=== PATIENT | female | born 1995 | race Caucasian/White ===

== ENCOUNTER 2024-06-04 09:34 | Outpatient (AMB) | payer OTHER, SELFPAY ==
--- NOTE | 2024-06-04 09:42 | MHC.OFFWIV ---
Intake Vital Signs 06/04/24 09:44 06/04/24 09:44 Height 5 ft 6 in Weight 187 lb 187 lb BMI 30.2 BP 112/62 Blood Pressure Location Lt brachial Position Sitting Respiration 12 Pulse 111 H Pulse Source Pulse Oximeter Temp 98.1 F Temp Source Temporal Artery Scan Pulse Oximetry (%) 96 Oxygen Delivery Method Room Air Intake Visit Reasons: Trouble swallowing Intake Note: Patient reports she has what feels like swollen tonsils. Patient reports she does not have a history of strep since she was a child. Patient reports she finds difficulty swallowing and talking. Patient Tobacco Use Status: Never used Tobacco Fine Jewelry Sales Associate Required: No Accompanied by: Self / Same As Patient Allergies No Known Allergies Allergy (Verified 06/04/24 09:56) Do you need a note to return to daycare/school/sports/work: No HPI HPI Comments History of Present Illness Details 29-year-old female here today with chief complaints of difficulty swallowing. Upon interview she appears quite ill and uncomfortable. She has speaking in a whisper tone, spitting as she can not swallow her own secretions. What she tells me is that she started with difficulty and painful swallowing a few days ago. Worse since onset. Has the chills and feels cold overall. She can no longer swallow Tylenol or ibuprofen, but when she could this did not seem to offer relief. Exam Awake alert ill-appearing Sclera and conjunctiva clear bilat Nares patent, turbinates within normal limits, no sinus tenderness with palpation bilat TM intact clear on the left, mild erythema on right MM dry, bulging peritonsillar mucosa on L with concomittant uvula deviation, diffuse erythema and edema, unable to stick tongue out, extremely tender to touch Tachycardic LS CTAB Plan Given the physical presentation and inability to manage secretions or swallow, she has been advised to seek care in the emergency room immediately. She reports that she has a dog in the car needs to go home 1st. She lives in [place], therefore I have advised her to go to [facility]. She understands the urgency. [facility] Social History Patient Tobacco Use Status: Never used Tobacco Physical Exam Vital Signs: Last Vital Signs Temp 98.1 F 06/04/24 09:44 Pulse 111 H 06/04/24 09:44 Resp 12 06/04/24 09:44 BP 112/62 06/04/24 09:44 Pulse Ox 96 06/04/24 09:44 Oxygen Delivery Method Room Air 06/04/24 09:44 BMI result Body Mass Index 30.2 Results AMB Rapid Strep AMB Rapid Strep Negative Last Edit by Carin Marcano CMA on 06/04/24 09:55 Results Reviewed Results Reviewed: Laboratory Last Values Strep Scn Rapid Clinic Negative 06/04/24 09:53 Assessment & Plan Assessment & Plan (1) Difficulty swallowing: Code(s): R13.10 - Dysphagia, unspecified Qualifiers: Dysphagia type: pharyngeal phase Qualified Code(s): R13.13 - Dysphagia, pharyngeal phase Plan . This note is constructed using voice recognition software. While every effort has been made to ensure accuracy in driver recruiter, still errors may have been included Sometimes, these errors may affect the content or meaning of the given sentence . Total time spent caring for the patient today was 30 minutes. This includes time spent before the visit reviewing the chart, time spent during the visit, and time spent after the visit on documentation Orders: Orders AMB Rapid Strep Screen Today J02.9 - Acute pharyngitis, unspecified Patient Instructions: Concern for peritonsillar abcess - advised to seek care in the ED immediately. Coding Level of Care Code Est Pt Level 4 (11502) Diagnoses Pharyngeal dysphagia R13.13 Dysphagia type: pharyngeal phase
[2024-06-04 09:44] VITALS: BP 112/62; PULSE 111; RESP 12; TEMP 36.7; O2SAT 96; BMI 30.2
== END 2024-06-04 10:13 | disposition home or self-care (01) ==
PROVIDERS: Visit Provider Nurse Practitioner Family
DX: R13.13 Dysphagia, pharyngeal phase (principal); J02.9 Acute pharyngitis, unspecified
CPT/HCPCS: 87880; 99214